=== PATIENT | female | born 1945 | race Caucasian/White ===

== ENCOUNTER 2019-09-10 16:53 | Emergency (ER) | payer MEDICARE, SELFPAY ==
[2019-09-10 17:20] VITALS: BP 145/78; PULSE 71; RESP 20; TEMP 36.6; O2SAT 98; BMI 23.4
--- NOTE | 2019-09-10 17:33 | DI.RAD.S_ITS ---
PROCEDURE: XR CLAVICLE RT INDICATIONS: fall TECHNIQUE: 2 views of the clavicle were acquired. COMPARISON: None. FINDINGS: Bones: There is a mildly displaced fracture seen involving the medial clavicle. No suspicious bony lesions. Age-appropriate bony degenerative changes are seen. Soft tissues: No suspicious soft tissue calcifications. The visualized lung apices are unremarkable. IMPRESSION: Mildly displaced medial clavicle fracture. If it would be helpful for clinical management decision making, please consider a dedicated CT study for further evaluation. Dictated by: Max Luke M.D. on 09/10/2019 at 16:51 Approved by: Max Luke M.D. on 09/10/2019 at 16:52
[2019-09-10 18:25] VITALS: PULSE 76
--- NOTE | 2019-09-10 18:32 | ED.UPPEXIN ---
HPI - Extremity Injury (Upper) General Chief Complaint: Extremity Injury, Upper Stated Complaint: fall, right side collar bone pain Time Seen by Provider: 09/10/19 18:15 Source: patient Mode of arrival: Ambulatory Limitations: no limitations History of Present Illness HPI narrative: 73-year-old female nonsmoker with noncontributory medical history presents with her in the chief complaint of right shoulder pain after a ground level fall. 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 She denies any head neck or back pain. She denies any chest pain, shortness of breath or hemoptysis. She denies nausea, vomiting or diarrhea. She takes no blood thinners and has full recall of the event. She has significant pain in her right shoulder which is worse with motion and improves with rest. She denies numbness, tingling or weakness. She is left-hand MD complaint: injury to: right and shoulder Onset (ago): hour(s) Other injuries: none Handedness: left Place: outdoors Severity: moderate Relieving factors: rest Exacerbating factors: movement of extremity Context: fall and direct blow Associated symptoms: denies other symptoms Related Data Previous Rx's Medication Instructions Recorded hydrocodone-acetaminophen 1 tab PO Q4-6H PRN #20 tab 09/10/19 Allergies Allergy/AdvReac Type Severity Reaction Status Date / Time No Known Drug Allergies Allergy Verified 09/10/19 17:26 Review of Systems Constitutional Constitutional: Denies chills, Denies fatigue, Denies fever(s), Denies frequent falls, Denies lethargy and Denies weakness Eyes Eyes: Denies change in vision, Denies eye discharge, Denies irritation and Denies loss of vision ENT Ears, Nose, Mouth, and Throat: Denies change in voice, Denies dizziness, Denies neck pain, Denies sore throat and Denies throat swelling Cardiovascular Cardiovascular: Denies chest pain, Denies irregular heart rhythm, Denies lightheadedness, Denies palpitations, Denies dyspnea, Denies dyspnea on exertion and Denies orthopnea Respiratory Respiratory: Denies cough, Denies dyspnea, Denies dyspnea on exertion and Denies wheezing Gastrointestinal Gastrointestinal: Denies abdominal pain, Denies change in bowel habits, Denies diarrhea, Denies nausea and Denies vomiting Musculoskeletal Musculoskeletal: Reports arthralgias, Reports limited range of motion, Denies neck pain and Denies numbness Integumentary/Breasts Skin/Breast: Denies pruritus, Denies erythema, Denies rash and Denies wounds Neurologic Neurologic: Denies behavioral changes, Denies confusion, Denies dizziness, Denies frequent falls, Denies loss of vision, Denies numbness and Denies weakness Psychiatric Psychiatric: Denies anxiety, Denies behavioral changes, Denies confusion, Denies depression, Denies homicidal ideation and Denies suicidal ideation Endocrine Endocrine: Denies fatigue, Denies flushing and Denies palpitations Hematologic/Lymphatic Hematologic/Lymphatic: Denies easy bruising Allergic/Immunologic Allergic/Immunologic: Denies urticaria, Denies throat swelling and Denies wheezing Patient History Social History Smoking Status: Never smoker Smoking Status: Never smoker alcohol intake frequency: other Exam Narrative Exam Narrative: GENERAL: [73] year old patient appears stated age. Well-nourished, well-developed patient, in mild distress. HEAD: Atraumatic. Normocephalic. EYES: Pupils equal round and reactive. Extraocular motions intact. No scleral icterus. No injection or drainage. ENT: Nose without bleeding, purulent drainage. Throat without erythema, tonsillar hypertrophy or exudate. Airway patent. NECK: Trachea midline. Non tender CARDIOVASCULAR: Regular rate and rhythm without murmurs, gallops, or rubs. RESPIRATORY: Clear to auscultation. Breath sounds equal bilaterally. No wheezes, rales, or rhonchi. GASTROINTESTINAL: Abdomen soft, non-tender, nondistended. EXTREMITIES: Pain in medial aspect of right clavicle with large anterior chest wall hematoma. No numbness, tingling or weakness. Radial pulse in tact, cap refill < 2 BACK: Nontender without deformity or crepitance. No flank tenderness. NEURO: AOx3. SKIN: No rash or erythema of visible areas Initial Vital Signs Initial Vital Signs: Vital Signs Temperature 97.9 F 09/10/19 17:20 Pulse Rate 71 09/10/19 17:20 Respiratory Rate 20 09/10/19 17:20 Blood Pressure 145/78 H 09/10/19 17:20 Pulse Oximetry 98 09/10/19 17:20 Procedures Orthopedic Splinting/Casting Injury #1: Side: right Upper Extremity Injury Location: shoulder Upper Extremity Immobilizer: sling/shoulder immobilizer Post splinting neuro exam: intact Post splinting vascular exam: intact Placed by: Nursing Course Orders Ordered: ED Orders 09/10/19 19:06 Basic Metabolic Panel Stat Complete Blood Count AUTO DIFF Stat Vital Signs Vital signs: Vital Signs - 8 hr 09/10/19 17:20 Temperature 97.9 F Pulse Rate 71 Respiratory Rate 20 Blood Pressure 145/78 H Pulse Oximetry 98 MDM - Extremity Injury (Upper) Lab Data Result diagrams: 09/10/19 19:06 09/10/19 19:06 Labs: Lab Results 09/10/19 09/10/19 Range/Units 19:06 19:06 WBC 7.9 (4.5-11.0) X10^3/uL RBC 4.18 (4.0-5.2) X10^6/uL Hgb 13.5 (12.0-16.0) g/dL Hct 39.6 (36-46) % MCV 94.7 (80-100) fL MCH 32.3 (26-34) PG MCHC 34.2 (30-36) % RDW 13.0 (11.6-14.8) % Plt Count 249 (150-400) X10^3/uL Neut % (Auto) 48.9 L (50-75) % Lymph % (Auto) 40.1 H (25-40) % [place] % (Auto) 7.2 (3-14) % Eos % (Auto) 1.7 L (2-4) % Baso % (Auto) 2.1 H (0-2) % Neut # (Auto) 3900 (9051-6846) /uL Lymph # (Auto) 3200 (0851-5733) /uL [place] # (Auto) 600 (0-900) /uL Eos # (Auto) 100 (0-450) /uL Baso # (Auto) 200 H (0-100) /uL Total Counted Cancelled Seg Neutrophils % Cancelled Band Neutrophils % Cancelled Lymphocytes % (Manual) Cancelled Atypical Lymphs % Cancelled Monocytes % (Manual) Cancelled Eosinophils % (Manual) Cancelled Basophils % (Manual) Cancelled Metamyelocytes % Cancelled Myelocytes % Cancelled Promyelocytes % Cancelled Blast Cells % Cancelled Neutrophils # (Manual) Cancelled Nucleated RBCs Cancelled Differential Comment Cancelled Hypersegmented Neuts Cancelled Hypogranular Neuts Cancelled Reactive Lymphocytes Cancelled Plasma Cells Cancelled Smudge Cells Cancelled Other Cell Type Cancelled Toxic Granulation Cancelled Toxic Vacuolation Cancelled Dohle Bodies Cancelled Alethea Rods Cancelled WBC Morphology Comment Cancelled Platelet Estimate Cancelled Clumped Platelets Cancelled Plt Morphology Comment Cancelled RBC Morphology Cancelled Dimorphic RBCs Cancelled Polychromasia Cancelled Hypochromasia Cancelled Poikilocytosis Cancelled Basophilic Stippling Cancelled Anisocytosis Cancelled Microcytosis Cancelled Macrocytosis Cancelled Spherocytes Cancelled Pappenheimer Bodies Cancelled Sickle Cells Cancelled Target Cells Cancelled Tear Drop Cells Cancelled Ovalocytes Cancelled Stomatocytes Cancelled Helmet Cells Cancelled [place] Bodies Cancelled [place] Rings Cancelled Anne Cells Cancelled Acanthocytes (Spur) Cancelled Rouleaux Cancelled Schistocytes Cancelled Sodium 136 L (137-145) mmol/L Potassium 4.1 (3.4-5.1) mmol/L Chloride 102 (98-107) mmol/L Carbon Dioxide 27 (22-32) mmol/L BUN 15 (7-17) mg/dL Creatinine 0.67 (0.52-1.04) mg/dL Estimated GFR > 60.0 (>60) mL/min BUN/Creatinine Ratio 22.4 H (6-22) Glucose 94 (80-110) mg/dL Calcium 10.4 H (8.4-10.2) mg/dL Imaging Data CT scan - chest: Radiologist's Impression: [place] [address] CT Scan Report Signed Patient: Kiersten Garza [employer]#: [id number] : 6Acct:[id number] Age/Sex: 73 / FDate of Service: 09/10/19 Loc: ED Accession Number: [id number] Procedure: CT chest w con Ordering Provider: Chaka Gillis D.O. PROCEDURE: CT CHEST W CON INDICATIONS: proximal clavicle fracture with large expanding hematoma TECHNIQUE: After the administration of intravenous contrast, 5 mm thick sections acquired from the pulmonary apices to the posterior costophrenic angles. 1 mm axial lung, 5 mm thick coronal and sagittal reformats and 7 mm axial MIP were acquired. For radiation dose reduction, the following was used: automated exposure control, adjustment of mA and/or kV according to patient size. COMPARISON: None. FINDINGS: Image quality: Excellent. Lungs and pleura: Lungs and pleural spaces are clear. Mediastinum: Normal heart size. No pericardial effusion. Thoracic aorta and main pulmonary trunk unremarkable. No mediastinal or hilar lymphadenopathy. Bones and chest wall: Displaced medial clavicle fracture with adjacent hematoma and edema. There is no evidence of an underlying vascular injury or active extravasation of contrast material. Remaining thoracic osseous structures are intact. IMPRESSION: Displaced medial clavicle fracture with adjacent hematoma and edema. No CT evidence of active extravasation. Dictated by: Onel Sam M.D. on 09/10/2019 at 19:39 Approved by: Onel Sam M.D. on 09/10/2019 at 19:43 Discharge Plan Departure Patient Disposition: Home Clinical Impression: Broken clavicle Qualifiers: Encounter type: initial encounter Clavicle location: unspecified part of clavicle Fracture type: closed Fracture alignment: nondisplaced Laterality: right Qualified Code(s): S42.001A - Fracture of unspecified part of right clavicle, initial encounter for closed fracture Discharge Date/Time: 09/10/19 20:00 Instructions: DI for Clavicle Fracture-Adult Activity Restrictions/Additional Instructions: *You have been diagnosed with [clavicle fracture with associated hematoma] *What to do: *Take medications as directed *I called the Emergency Department at [facility] in [place] and was given contact info for their orthopedist lead section supervisor Dr. Shekhar Enrique ([phone]). Please call for an appointment. Also, I asked about getting you info to establish with a PCP and they just suggested contacting any of the [facility] in [facility] and they can help you. *Return to ER if you should have any new, worsening or concerning symptoms Prescriptions: New hydrocodone-acetaminophen 5-325 mg tablet 1 tab PO Q4-6H PRN (Reason: pain) Qty: 20 RF: 0 Referrals: Manuel Eaton MD [Physician] -
--- NOTE | 2019-09-10 18:49 | DI.CT.S_ITS ---
PROCEDURE: CT CHEST W CON INDICATIONS: proximal clavicle fracture with large expanding hematoma TECHNIQUE: After the administration of intravenous contrast, 5 mm thick sections acquired from the pulmonary apices to the posterior costophrenic angles. 1 mm axial lung, 5 mm thick coronal and sagittal reformats and 7 mm axial MIP were acquired. For radiation dose reduction, the following was used: automated exposure control, adjustment of mA and/or kV according to patient size. COMPARISON: None. FINDINGS: Image quality: Excellent. Lungs and pleura: Lungs and pleural spaces are clear. Mediastinum: Normal heart size. No pericardial effusion. Thoracic aorta and main pulmonary trunk unremarkable. No mediastinal or hilar lymphadenopathy. Bones and chest wall: Displaced medial clavicle fracture with adjacent hematoma and edema. There is no evidence of an underlying vascular injury or active extravasation of contrast material. Remaining thoracic osseous structures are intact. IMPRESSION: Displaced medial clavicle fracture with adjacent hematoma and edema. No CT evidence of active extravasation. Dictated by: Onel Sam M.D. on 09/10/2019 at 19:39 Approved by: Onel Sam M.D. on 09/10/2019 at 19:43
[2019-09-10 19:15] LABS: Hematocrit 39.6 % (36-46); Hemoglobin 13.5 g/dL (12.0-16.0); Mean Corpuscular HGB Conc 34.2 % (30-36); Mean Corpuscular Hemoglobin 32.3 PG (26-34); Mean Corpuscular Volume 94.7 fL (80-100); Platelet Count 249 X10^3/uL (150-400); Red Blood Cell Count 4.18 X10^6/uL (4.0-5.2); White Blood Cell Count 7.9 X10^3/uL (4.5-11.0)
[2019-09-10 19:28] LABS: BUN Creatinine Ratio 22.4 (6-22); Blood Urea Nitrogen 15 mg/dL (7-17); Calcium 10.4 mg/dL (8.4-10.2); Carbon Dioxide 27 mmol/L (22-32); Chloride 102 mmol/L (98-107); Estimated Glomerular Filt Rate > 60.0 mL/min (>60); Glucose 94 mg/dL (80-110); HEMOLYSIS < 15 (0-50); Potassium 4.1 mmol/L (3.4-5.1); Sodium 136 mmol/L (137-145)
[2019-09-10 20:00] VITALS: BP 141/74; PULSE 73; RESP 16; O2SAT 99
[2019-09-10 20:16] LABS: Add Manual Diff / Slide Review NO; Basophils Percent Auto 2.1 % (0-2); Eosinophils Percent Auto 1.7 % (2-4); Lymphocytes Percent Auto 40.1 % (25-40); Monocytes Percent Auto 7.2 % (3-14); Neutrophils Percent Auto 48.9 % (50-75)
[2019-09-10 20:18] LABS: Basophils Absolute Auto 200 /uL (0-100); Eosinophils Absolute Auto 100 /uL (0-450); Lymphocytes Absolute Auto 3200 /uL (1100-4500); Monocytes Absolute Auto 600 /uL (0-900); Neutrophils Absolute Auto 3900 /uL (1500-7000)
== END 2019-09-10 20:00 | disposition home or self-care (01) ==
PROVIDERS: Emergency Provider Emergency Medicine
DX: S42.001A Fracture of unspecified part of right clavicle, initial encounter for closed fracture (principal); W01.0XXA Fall on same level from slipping, tripping and stumbling without subsequent striking against object, initial encounter
CPT/HCPCS: 71260; 73000; 80048; 85025; 99282; 99284; Q9967